=== PATIENT | male | born 1965 | race Caucasian/White ===

== ENCOUNTER 2017-05-25 14:26 | Emergency (ER) | payer OTHER ==
[~2017-05-25] VITALS: Ht 175.3 cm; Wt 100.4 kg
[~2017-05-25 14:26] MED LIST: TRICOR48 MG PO
[2017-05-25] MEDS ORDERED: ULTRAM50 MG PO (16:44)
[2017-05-25 17:00] VITALS: BP 118/70
== END 2017-05-25 17:08 | disposition home or self-care (01) ==
LOC: EME 14:26
DX: S16.1XXA Strain of muscle, fascia and tendon at neck level, initial encounter (principal); V43.52XA Car driver injured in collision with other type car in traffic accident, initial encounter
CPT/HCPCS: 70450; 72125; 99281; 99284